=== PATIENT | female | born 1990 | race Two or more races ===

== ENCOUNTER 2022-07-04 19:42 | Emergency (ER) | payer MEDICAID, OTHER ==
[~2022-07-04] VITALS: Ht 144.8 cm; Wt 105.3 kg
[2022-07-04 21:19] LABS: Basophils # (auto) 0 10 ^3/uL (0-0.2); Basophils % (auto) 0.1 % (0.0-2.0); Eosinophils # (auto) 0.1 10 ^3/uL (0-0.8); Eosinophils % (auto) 1.2 % (0.0-7.0); Hematocrit 40.4 % (36.0-46.0); Hemoglobin 13.2 g/dL (12.2-16.2); Lymphocytes # (auto) 2.7 10 ^3/uL (0.4-5.4); Lymphocytes % (auto) 24.8 % (10.0-50.0); Mean Corpuscular Hemoglobin 27.1 pg (28.0-32.0); Mean Corpuscular Hgb Conc. 32.7 g/dL (32.0-36.0); Mean Corpuscular Volume 82.9 fL (80.0-100.0); Monocytes # (auto) 0.7 10 ^3/uL (0-1.3); Monocytes % (auto) 6.1 % (0.0-12.0); Neutrophils # (auto) 7.5 10 ^3/uL (1.6-8.6); Neutrophils % (auto) 67.8 % (37.0-80.0); Nucleated Red Blood Cells % 0.1 %; Red Blood Cells 4.87 10^6/uL (4.0-5.20); Red Cell Distribution Width 15.1 % (11.8-14.3)
[2022-07-04 21:23] LABS: Urine Bacteria NONE SEEN /hpf (None Seen); Urine Blood 2+ /uL (Negative); Urine Mucus FEW (None Seen); Urine Specific Gravity 1.019 (1.001-1.035); Urine WBC 6 /hpf (0 - 5)
[2022-07-04] MEDS ORDERED: NITROFURANTOIN 100 mg CAP PO ONE (22:00)
[2022-07-04] MEDS ORDERED: CEPHALEXIN 250 MG CAP PO ONE (22:15)
[2022-07-05 02:20] VITALS: BP 147/110
[2022-07-05] MEDS ORDERED: CEPH-510 PO (03:41)
== END 2022-07-05 03:55 | disposition home or self-care (01) ==
LOC: ER 19:42
DX: O20.0 Threatened abortion (principal); O23.41 Unspecified infection of urinary tract in pregnancy, first trimester; N39.0 Urinary tract infection, site not specified; Z3A.01 Less than 8 weeks gestation of pregnancy
CPT/HCPCS: 36415; 76801; 81001; 84702; 85025

== ENCOUNTER 2024-02-25 20:47 | Emergency (ER) | payer MEDICAID, OTHER ==
[~2024-02-25] VITALS: Ht 144.8 cm; Wt 106.9 kg
[~2024-02-25 20:47] MED LIST: CEPH-510 PO
--- NOTE | 2024-02-25 21:22 | ED.PDOC ---
Joey. trauma (HPI) HPI Comments 33-year-old female who came to ER for head injury sustained at work approximately 1/2 hour prior to arrival.. 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 Noted swelling/redness of her nasal area. No loss of consciousness noted. No nausea or vomiting. No blood loss. Vital signs were stable on arrival. Chief Complaint: Head Injury Time Seen by MD: : Primary Care Provider: FLASH Reviewed notes: Nurses Notes Allergies: Coded Allergies: NO KNOWN ALLERGIES (Unverified , 07/04/22) Home Meds Active Scripts Cephalexin ( Keflex 500) 500 Mg Cap, 1 CAP PO TID for 7 Days, #20 CAP Prov:VIDHI SHOEMAKER DO 07/05/22 Information Source: Patient Mode of Arrival: Ambulatory Severity: Moderate Timing: Minutes Duration: Since onset Prehospital treatment: None Location: Face, Nose Location of laceration: None Mechanism: Blunt trauma Associated signs and symtoms: Headache Past Medical History PAST MEDICAL HISTORY: Denies Surgical History: Denies all surgeries LOAD MIXER History: Denies all LOAD MIXER Hx Family History Family History: Family hx of HTN Social History Smoker: Non-Smoker Alcohol: Denies ETOH Use Drugs: Denies Drug Use Lives In: Home Constitutional: denies: chills, diaphoresis, fatigue, fever, malaise, sweats, weakness, others EENTM: denies: blurred vision, double vision, ear bleeding, ear discharge, ear drainage, ear pain, ear ringing, eye pain, eye redness, hearing loss, mouth pain, mouth swelling, nasal discharge, nose bleeding, nose congestion, nose pain, photophobia, tearing, throat pain, throat swelling, voice changes, others Respiratory: denies: cough, hemoptysis, orthopnea, SOB at rest, shortness of breath, SOB with excertion, stridor, wheezing, others Cardiovascular: denies: chest pain, dizzy spells, diaphoresis, Dyspnea on exertion, edema, irregular heart beat, left arm pain, lightheadedness, palpitations, PND, syncope, others Gastrointestinal: denies: abdomen distended, abdominal pain, blood streaked bowels, constipated, diarrhea, dysphagia, difficulty swallowing, hematemesis, melena, nausea, poor appetite, poor fluid intake, rectal bleeding, rectal pain, vomiting, others Genitourinary: denies: abnormal vagina bleeding, burning, dyspareunia, dysuria, flank pain, frequency, hematuria, incontinence, pain, , vagina discharge, urgency, others Neurological: reports: headache (Facial pain); denies: dizziness, fainting, left sided numbness, left sided weakness, numbness, paresthesia, pre-existing deficit, right sided numbness, right sided weakness, seizure, speech problems, tingling, tremors, weakness, others Musculoskeletal: denies: back pain, gout, joint pain, joint swelling, muscle pain, muscle stiffness, neck pain, others Integumetry: denies: bruises, change in color, change in hair/nails, dryness, laceration, lesions, lumps, rash, wounds, others Allergic/Immunocompromised: denies: Difficulty Healing, Frequent Infections, Hives, Itching, others Hematologic/Lymphatic: denies: anemia, blood clots, easy bleeding, easy bru ising, swollen glands, others Endocrine: denies: excessive hunger, excessive sweating, excessive thirst, e xcessive urination, flushing, intolerance to cold, intolerance to heat, unexplained weight gain, unexplained weight loss, others Psychiatric: denies: anxiety, bipolar disorder, depression, hopeless, panic disorder, schizophrenia, sleepless, suicidal, others Physical Exam General Appearance: Moderate Distress (Due to nose and headache concerns.), Obese HEENT: Head (Patient displays some mild edema and erythema at the bridge of the nose and coordination of the forehead between the eyebrows. No blood loss. No deformities noted. No skull depressions.), Pharynx Normal, TMs Normal Neck: Full Range of Motion, Non-Tender, Normal, Normal Inspection Respiratory: Chest Non-Tender, Lungs Clear, No Accessory Muscle Use, No Respiratory Distress, Normal Breath Sounds Cardiovascular: No Edema, No JVD, No Murmur, No Gallop, Normal Peripheral Pulses, Regular Rate/Rhythm Breast Exam: Deferred Gastrointestinal: No Organomegaly, Non Tender, No Pulsatile Mass, Normal Bowel Sounds, Soft Genitalia: Deferred Pelvic: Deferred Rectal: Deferred Extremities: No calf tenderness, Normal capillary refill, Normal inspection, Normal range of motion, Non-tender, No pedal edema Musculoskeletal : Apperance: Normal Neurologic: Alert, No Motor Deficits, Normal Affect, Normal Mood, No Sensory Deficits Cerebellar Function: Normal Reflexes: Normal Skin: Dry, Normal Color, Warm Lymphatic: No Adenopathy Was a procedure done? Was a procedure done?: No Differential Diagnosis Multiple Trauma: Closed Head Injury, Fractures, Contusion, Hematoma X-Ray, Labs, Meds, VS Vital Signs Date Time Temp Pulse Resp B/P (MAP) Pulse Ox O2 Delivery O2 Flow Rate FiO2 02/25/24 21:57 74 16 98 Room Air 02/25/24 21:57 98.7 74 16 126/56 (79) 98 98.7 02/25/24 21:00 98.7 74 20 126/56 (79) 98 Current Medications Medications (Trade) Dose Ordered Sig/Jc Route Start Time Stop Time Status Last Admin Ketorolac Tromethamine (Toradol Injection) 30 mg ONCE ONCE IM 02/25/24 21:30 02/25/24 21:31 DC 02/25/24 21:53 Acetaminophen (Tylenol Tablet) 1,000 mg ONCE ONCE PO 02/25/24 21:30 02/25/24 21:31 DC 02/25/24 21:53 X-Ray, Labs, Meds, VS Comment All studies performed in the ED today were evaluated by me personally. Imaging studies were unremarkable for any acute fractures. Patient sustained a facial contusion due to the event. Advised patient utilize Tylenol and or Motrin as well as ice therapy. Time of 1ST Reevaluation: 22:24 Reevaluation 1ST: Improved Consultation: PCP Patient Education/Counseling: Diagnosis, Treatment Family Education/Counseling: Diagnosis, Treatment Departure 1 Departure Time of Disposition: 22:24 Impression: Primary Impression: Facial contusion Disposition: 01 HOME / SELF CARE / HOMELESS Condition: Stable Additional Instructions: Advised patient utilize Tylenol and or Motrin as needed for symptomatic pain relief as well as ice therapy. If patient continues to have concerns, she will need to follow up with the worker's comp MD. e-Prescriptions Acetaminophen (Acetaminophen) 500 Mg Tab 500 MG PO Q4HP PRN, #30 TAB Prov: TRAN COTO PAC 02/25/24 Ibuprofen Micronized (Ibuprofen) 800 Mg Tab 800 MG PO Q8HP PRN, #20 TAB Prov: TRAN COTO PAC 02/25/24 Discharged With: Self, Relative Critical Care Note Critical Care Time?: No Stability Stability form required: No Heart Score Heart Score: Heart Score Response (Comments) Value History N/A 0 EKG N/A 0 Age N/A 0 Risk Factors N/A 0 Troponin N/A 0 Total 0 I personally scribed for TRAN COTO PAC (DVASHMA) on 02/25/24 at 21:22. Electronically submitted by Luiz Pelletier ([facility] TRAN COTO PAC Feb 25, 2024 21:22
[2024-02-25] MEDS: ACETAMINOPHEN 325 MG TAB PO ONE (21:53)
[2024-02-25] MEDS: KETOROLAC TROMETH 60MG/2ML VIAL IM ONE (21:53)
[2024-02-25 21:57] VITALS: BP 126/56; PULSE 74; RESP 16; TEMP 98.7; O2SAT 98
--- NOTE | 2024-02-25 22:02 | DVH ---
CLINICAL INDICATION: Pain TECHNIQUE: 4 radiographic views of the facial bones were obtained. Comparison: None FINDINGS/IMPRESSION: There is no evidence of acute fracture . Visualized sinuses are well-aerated. The mastoids are clear. If symptoms persist, consider CT for further evaluation.
[2024-02-25] MEDS ORDERED: IBUP-1455 PO (22:26)
[2024-02-25] MEDS ORDERED: ACET500T58 PO (22:26)
== END 2024-02-25 22:40 | disposition home or self-care (01) ==
LOC: ER 20:47
DX: S00.83XA Contusion of other part of head, initial encounter (principal); Z79.899 Other long term (current) drug therapy; W20.8XXA Other cause of strike by thrown, projected or falling object, initial encounter; Y93.89 Activity, other specified; Y92.89 Other specified places as the place of occurrence of the external cause; Y99.0 Civilian activity done for income or pay
CPT/HCPCS: 96372; 99283; J1885